=== PATIENT | female | born 2005 | race Caucasian/White ===

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

== ENCOUNTER 2023-09-15 21:35 | Emergency (ER) | payer MEDICAID ==
[~2023-09-15] VITALS: Ht 165.1 cm; Wt 111.1 kg
[~2023-09-15 21:35] MED LIST: LEVO750T75 PO
[2023-09-15 21:42] VITALS: BP 134/87; PULSE 97; TEMP 98.3; O2SAT 98
[2023-09-15] MEDS ORDERED: AMOX-1230 PO (22:24)
[2023-09-15] MEDS ORDERED: METH4TAB1 PO (22:26)
== END 2023-09-15 22:32 | disposition home or self-care (01) ==
LOC: MED 21:35
DX: J40 Bronchitis, not specified as acute or chronic (principal); Z79.2 Long term (current) use of antibiotics; Z79.899 Other long term (current) drug therapy
CPT/HCPCS: 71045; 99283